=== PATIENT | male | born 1995 | race American Indian/Alaskan Native ===

== ENCOUNTER 2021-12-12 10:52 | Emergency (ER) | payer BC ==
[2021-12-12 11:19] VITALS: BP 148/87
--- NOTE | 2021-12-12 11:55 | Emergency Department Report ---
HPI - General Chief Complaint: Psych Time Seen by Provider: 12/12/21 11:45 - HPI HPI: [facility] 19 The patient is a 26-year-old male present with chief complaint of depression. When asked what made him come to the emergency department the patient replies "the police made me come." Upon further inquiry the patient admits she made a post online that he states sounded like he was going to kill himself so his mother called 911. Patient says his post stated "I just give up." Patient states he just started having these feelings today. Patient denies any attempts at harming himself or any active plans. When asked how he is feeling currently patient replies "I am okay. I am depressed." ED Past Medical Hx - Past Medical History Hx Hypertension: Yes Hx Asthma: Yes - Surgical History Additional Surgical History: Tonsillectomy and adenoidectomy - Family History Family history: no significant - Social History Smoking Status: Heavy Tobacco Smoker (2 packs/day) Substance Use Type: None (Denies illicit drug use) ED Review of Systems ROS: Stated complaint: DEPRESSION Other details as noted in HPI Constitutional: no symptoms reported Eyes: denies: eye pain ENT: denies: throat pain Respiratory: no symptoms reported Cardiovascular: denies: chest pain Endocrine: no symptoms reported Gastrointestinal: denies: abdominal pain Genitourinary: denies: dysuria Musculoskeletal: denies: back pain Neurological: denies: headache Psychiatric: depression, suicidal thoughts Physical Exam - Physical Exam Vital Signs: Vital Signs 12/12/21 10:56 Temperature 98.3 F Pulse Rate 97 H Respiratory 20 Rate Blood Pressure 148/87 [Left] O2 Sat by Pulse 97 Oximetry Physical Exam: GENERAL: The patient is well-developed well-nourished male lying on stretcher not appearing to be in acute distress. [] HEENT: Normocephalic. Atraumatic. Extraocular motions are intact. Patient has moist mucous membranes. NECK: Supple. Trachea midline CHEST/LUNGS: Clear to auscultation. There is no respiratory distress noted. HEART/CARDIOVASCULAR: Regular. There is no tachycardia. There is no gallop rub or murmur. ABDOMEN: Abdomen is soft, nontender. Patient has normal bowel sounds. There is no abdominal distention. SKIN: There is no rash. There is no edema. There is no diaphoresis. NEURO: The patient is awake, alert, and oriented. The patient is cooperative. The patient has no focal neurologic deficits. The patient has normal speech. GCS 15 MUSCULOSKELETAL: There is no evidence of acute injury. ED Course Vital Signs 12/12/21 10:56 Temperature 98.3 F Pulse Rate 97 H Respiratory 20 Rate Blood Pressure 148/87 [Left] O2 Sat by Pulse 97 Oximetry ED Medical Decision Making - Lab Data Result diagrams: 12/12/21 12:02 12/12/21 12:02 - Differential Diagnosis Depression, adjustment disorder, suicidal ideation Critical care attestation.: If time is entered above; I have spent that time in minutes in the direct care of this critically ill patient, excluding procedure time. ED Disposition Clinical Impression: Depressive episode Disposition: 07 LEFT AWOL/ELOPED Is pt being admited?: No Does the pt Need Aspirin: No Condition: Stable Referrals: LINDA WATSON MD [Primary Care Provider] - 3-5 Days Forms: AMA Form Time of Disposition: 13:20 (Patient eloped after psych eval/clearance before labs fully resulted)
--- NOTE | 2021-12-12 12:49 | Consultation ---
History of Present Illness - Reason for Consult Consult date: 12/12/21 Reason for consult: mental health evaluation - History of Present Psychiatric Illness ED Note: The patient is a 26-year-old male present with chief complaint of depression. When asked what made him come to the emergency department the patient replies "the police made me come." Upon further inquiry the patient admits she made a post online that he states sounded like he was going to kill himself so his mother called 911. Patient says his post stated "I just give up." Patient states he just started having these feelings today. Patient denies any attempts at harming himself or any active plans. When asked how he is feeling currently patient replies "I am okay. I am depressed." The patient is a 26 year old male with no psychiatric history. In my encounter with the patient he is calm, alert and oriented x3. The patient is tearful, he reports ongoing depression. The patient states recent stressor such as relationship issues " I'm sad but I'm not going to kill myself or harm anyone, I just want to talk to somebody." The patient is not receptive to starting psychotropic medication but states he is open to therapy. He reports that he is looking forward to going back to work. He denies any current suicidal/homicidal ideation and denies hallucinations. PAST PSYCHIATRIC HISTORY: Diagnoses: Denies Suicide attempts or Self-harm behavior: Denies Prior psychiatric hospitalizations: Denies Substance Abuse history:marijuana Previous psychiatric medications tried: Denies Outpatient treatment: Denies PAST MEDICAL HISTORY: None reported Family Psychiatric History: None reported SOCIAL HISTORY Marital Status: Single Living Arrangements: Lives alone Employment Status: employed Access to guns/weapons: Denies Education:Some college History of Abuse: Denies Legal History:Unknown REVIEW OF SYSTEMS Constitutional: Negative for weight loss ENT: Negative for stridor Respiratory: Negative for cough or hemoptysis All other systems reviewed and are negative MENTAL STATUS EXAMINATION General Appearance: Dressed appropriately, Behavior: calm and cooperative Mood: Depressed Affect and affective range: congruent with mood Thought Process: Goal directed Thought content:Denies Speech: Normal Suicidal Ideation: Denies Homicidal Ideation: Denies Hallucinations: Denies Delusions:None Insight and Judgment:Limited insight and judgment Memory: Limited Attention: Distracted Orientation: Alert, oriented Assessment (1)Major depressive disorder (2) Continue home meds. Treatment Plan DC 1013 Continue home meds Sitter: Defer to primary Medical: Per primary Disposition:Do not recommend acute psychiatric inpatient treatment. Assess will provide patient with psychiatric outpatient resources and safety plan. Will sign off. Thank you for this consult. Case staffed with Dr. Paulson Medications and Allergies Medications and Allergies Allergies Allergy/AdvReac Type Severity Reaction Status Date / Time Penicillins Allergy Unknown Verified 12/12/21 11:51 Mental Status Exam - Vital signs Last Vital Signs Temp 98.3 F 12/12/21 10:56 Pulse 97 H 12/12/21 10:56 Resp 20 12/12/21 10:56 BP 148/87 12/12/21 10:56 Pulse Ox 97 12/12/21 10:56 Results Result Diagrams: 12/12/21 12:02 All other labs normal.
[2021-12-12 13:01] LABS: Basophils % (Auto) 0.3 % (0.0-1.8); Eosinophils % (Auto) 0.2 % (0.0-4.3); Hematocrit 52.3 % (35.5-45.6); Hemoglobin 16.9 gm/dl (11.8-15.2); Lymphocytes # (Auto) 2.1 K/mm3 (1.2-5.4); Lymphocytes % (Auto) 14.9 % (13.4-35.0); Mean Corpuscular HGB Conc 32 % (32-34); Mean Corpuscular Volume 91 fl (84-94); Monocytes # (Auto) 0.8 K/mm3 (0.0-0.8); Monocytes % (Auto) 5.9 % (0.0-7.3); Platelet Count 281 K/mm3 (140-440); Red Blood Count 5.76 M/mm3 (3.65-5.03); Red Cell Distribution Width 14.3 % (13.2-15.2)
[2021-12-12 13:23] LABS: Alanine Aminotransferase 18 units/L (7-56); Albumin 4.8 g/dL (3.9-5); BUN/Creatinine Ratio 11; Blood Urea Nitrogen 11 mg/dL (9-20); Calcium 9.9 mg/dL (8.4-10.2); Hemolysis Index 59
== END 2021-12-12 13:51 | disposition left against medical advice (07) ==
LOC: ED 10:52
DX: F32.A Depression, unspecified (principal); I10 Essential (primary) hypertension; J45.909 Unspecified asthma, uncomplicated; F17.200 Nicotine dependence, unspecified, uncomplicated
CPT/HCPCS: 36415; 80053; 80320; 85025; 99284; G0480

== ENCOUNTER 2022-03-30 16:15 | Emergency (ER) | payer BC ==
[2022-03-30 20:44] LABS: Mucus,Urine 3+ /HPF
[2022-03-30 20:48] LABS: Color,Urine Yellow (Yellow)
[2022-03-30 20:51] LABS: Ictotest,Urine Positive (Negative)
[2022-03-30] MEDS ORDERED: AZITHROMYCIN 250 MG TAB PO ONE (21:14)
[2022-03-30] MEDS ORDERED: LIDOCAINE-MPF (1%) 10 MG/1 ML VIAL 5 ML INFILTRATI ONE (21:14)
--- NOTE | 2022-03-30 21:20 | Emergency Department Report ---
ED General Adult HPI - General Chief complaint: Urogenital-Male Stated complaint: PENIS DISCHARGE Time Seen by Provider: 03/30/22 21:13 Source: patient Mode of arrival: Ambulatory Limitations: No Limitations - History of Present Illness Initial comments: Patient 26-year-old male who presents for penile discharge white thick with dysuria urgency and frequency. States partner positive for BV. Patient denies fevers or chills there is no open wounds or lesions. No nausea vomiting or abdominal pain. - Related Data Previous Rx's Medication Instructions Recorded Last Taken Type Doxycycline Hyclate 100 mg PO BID 7 Days #14 cap 03/30/22 Unknown Rx Allergies Allergy/AdvReac Type Severity Reaction Status Date / Time Penicillins Allergy Unknown Verified 03/30/22 17:45 ED Review of Systems ROS: Stated complaint: PENIS DISCHARGE Other details as noted in HPI Constitutional: denies: chills, fever Eyes: denies: eye pain, eye discharge, vision change ENT: denies: ear pain, throat pain Respiratory: denies: cough, shortness of breath, wheezing Cardiovascular: denies: chest pain, palpitations Endocrine: no symptoms reported Gastrointestinal: denies: abdominal pain, nausea, vomiting, diarrhea Genitourinary: urgency, dysuria, frequency, discharge (White thick), testicular pain. denies: hematuria, testicular mass Musculoskeletal: denies: back pain, joint swelling, arthralgia Skin: denies: rash, lesions Neurological: denies: headache, weakness, paresthesias, vertigo Psychiatric: denies: anxiety, depression Hematological/Lymphatic: denies: easy bleeding, easy bruising ED Past Medical Hx - Past Medical History Hx Hypertension: Yes Hx Asthma: Yes - Surgical History Additional Surgical History: Tonsillectomy and adenoidectomy - Social History Smoking Status: Heavy Tobacco Smoker (2 packs/day) Substance Use Type: None (Denies illicit drug use) - Medications Home Medications: Home Medications Medication Instructions Recorded Confirmed Last Taken Type Doxycycline Hyclate 100 mg PO BID 7 Days #14 cap 03/30/22 Unknown Rx ED Physical Exam - General Limitations: No Limitations General appearance: alert, in no apparent distress - Head Head exam: Present: normocephalic, normal inspection - Eye Eye exam: Present: EOMI Pupils: Present: normal accommodation - ENT ENT exam: Present: mucous membranes moist - Neck Neck exam: Present: normal inspection, full ROM. Absent: tenderness - Respiratory Respiratory exam: Present: normal lung sounds bilaterally. Absent: respiratory distress - Cardiovascular Cardiovascular Exam: Present: regular rate, normal rhythm, normal heart sounds. Absent: systolic murmur, diastolic murmur, rubs, gallop - GI/Abdominal GI/Abdominal exam: Present: soft, normal bowel sounds. Absent: distended, tenderness, guarding, rebound, rigid, bruit, hernia - Rectal Rectal exam: Present: deferred - exam: Present: other (Deferred) - Extremities Exam Extremities exam: Present: normal inspection, full ROM. Absent: tenderness - Back Exam Back exam: Present: normal inspection, full ROM. Absent: CVA tenderness (R), CVA tenderness (L) - Neurological Exam Neurological exam: Present: alert, oriented X3 - Psychiatric Psychiatric exam: Present: normal affect, normal mood - Skin Skin exam: Present: warm, dry, intact, normal color. Absent: rash ED Course Vital Signs 03/30/22 17:40 Temperature 99.6 F Pulse Rate 102 H Respiratory 18 Rate Blood Pressure 139/96 [Left] O2 Sat by Pulse 100 Oximetry ED Medical Decision Making - Lab Data Labs 03/30/22 20:22 Urine Color Yellow Urine Turbidity Clear Specific [place] (Man) 1.015 Ur Protein (Man) 1+ Ur Ketones (Man) 3+ Ur Nitrite (Man) Negative Ur Reducing Substances Not Reportable Urine Bilirubin (Man) 1 Urine Ictotest Positive Leukocyte Esterase (Man) Negative Urine WBC (Auto) 3.0 Urine RBC (Auto) 11.0 Urine RBC (Manual) Trace Urine Mucus 3+ - Medical Decision Making Patient treated for dysuria STD. Patient will follow-up with health department for HSV and HIV screening. Patient verbalized agreement understanding of same patient DC'd in stable condition at this time. Critical care attestation.: If time is entered above; I have spent that time in minutes in the direct care of this critically ill patient, excluding procedure time. ED Disposition Clinical Impression: STD (male) Disposition: HOME / SELF CARE / HOMELESS Is pt being admited?: No Does the pt Need Aspirin: No Condition: Stable Instructions: Safe Sex Additional Instructions: Take all medications as prescribed. Follow-up with health department for HIV and HSV screening. Prescriptions: Doxycycline Hyclate 100 mg PO BID 7 Days #14 cap Referrals: [facility] [Outside] - 3-5 Days Forms: Work/School Release Form(ED) Time of Disposition: 21:20
[2022-03-30 21:40] VITALS: BP 139/95
== END 2022-03-30 21:57 | disposition home or self-care (01) ==
LOC: ED 16:15
DX: A64 Unspecified sexually transmitted disease (principal); Z88.0 Allergy status to penicillin; I10 Essential (primary) hypertension; J45.909 Unspecified asthma, uncomplicated
CPT/HCPCS: 81001; 96372; 99283; J0696; J3490